=== PATIENT | female | born 1940 | race Caucasian/White ===

== ENCOUNTER 2020-10-23 16:07 | Emergency (ER) | payer MEDICARE, BC, OTHER ==
[~2020-10-23] VITALS: Ht 157.5 cm; Wt 78.2 kg
--- NOTE | 2020-10-23 17:53 | REPVR ---
PROCEDURE INFORMATION: Exam: CT Head Without Contrast Exam date and time: 10/23/2020 4:55 PM Age: 80 years old Clinical indication: Injury or trauma; Fall; Blunt trauma (contusions or hematomas); Additional info: Richelle TECHNIQUE: Imaging protocol: Computed tomography of the head without contrast. Radiation optimization: All CT scans at this facility use at least one of these dose optimization techniques: automated exposure control; mA and/or kV adjustment per patient size (includes targeted exams where dose is matched to clinical indication); or iterative reconstruction. COMPARISON: No relevant prior studies available. FINDINGS: Brain: Hyperdense subdural hematoma along the anterior falx cerebri measuring up to 4 mm in thickness, image 17 series 201. Focal areas of hyperdense left frontal subarachnoid hemorrhage, images 21 and 25 of series 201. The brain demonstrates diffuse volume loss. There is white matter hypodensity most consistent with chronic small vessel ischemic change. No visible evolving territorial infarct. Perivascular spaces or old lacunar infarcts in the lentiform nuclei. Cerebral ventricles: The ventricles are enlarged in keeping with volume loss. Paranasal sinuses: The paranasal sinuses are evaluated separately on a dedicated exam. Mastoid air cells: Visualized mastoid air cells are well aerated. Bones/joints: No acute calvarial fracture seen. Soft tissues: Left frontal scalp soft tissue swelling. IMPRESSION: Small, acute anterior parafalcine subdural as well as left frontal subarachnoid hemorrhages without intracranial mass effect. Electronically signed by: Tati Lyn On 10/23/2020 17:53:00 PM
--- NOTE | 2020-10-23 17:58 | REPVR ---
PROCEDURE INFORMATION: Exam: CT Cervical Spine Without Contrast Exam date and time: 10/23/2020 5:00 PM Age: 80 years old Clinical indication: Injury or trauma; Fall; Blunt trauma TECHNIQUE: Imaging protocol: Computed tomography images of the cervical spine without contrast. Radiation optimization: All CT scans at this facility use at least one of these dose optimization techniques: automated exposure control; mA and/or kV adjustment per patient size (includes targeted exams where dose is matched to clinical indication); or iterative reconstruction. COMPARISON: No relevant prior studies available. FINDINGS: Bones/joints: Mild lower cervical levoconvex scoliosis. Reversal of the cervical lordosis may be positional or due to muscle spasm. Slight grade 1 degenerative anterolisthesis of C3 on C4 and C7 on T1. No acute fracture seen. Discs/Spinal canal/Neural foramina: Moderate pannus like degenerative changes at C1-C2. Multilevel cervicothoracic disc height loss and spondylosis, in particular from C4-C5 through C6-C7. Advanced multilevel facet arthropathy. No severe central spinal canal stenoses. There are neural foraminal stenoses due to uncovertebral and facet arthropathy, in particular C4-C5 and C5-C6 levels. Oropharynx: Postinfectious postinflammatory calcifications in the palatine tonsils. Lungs: Lung apices are normal. Soft tissues: Unremarkable. IMPRESSION: No cervical spine fracture seen. Electronically signed by: Tati Lyn On 10/23/2020 17:58:27 PM
--- NOTE | 2020-10-23 18:02 | REPVR ---
PROCEDURE INFORMATION: Exam: CT Maxillofacial Without Contrast Exam date and time: 10/23/2020 5:00 PM Age: 80 years old Clinical indication: Injury or trauma; Fall; Blunt trauma (contusions or hematomas); Cheek bone and forehead and nose; Bilateral TECHNIQUE: Imaging protocol: Computed tomography images of the face without contrast. Radiation optimization: All CT scans at this facility use at least one of these dose optimization techniques: automated exposure control; mA and/or kV adjustment per patient size (includes targeted exams where dose is matched to clinical indication); or iterative reconstruction. COMPARISON: No relevant prior studies available. FINDINGS: Orbital cavity: Thinning of the lenses of the globes consistent with prior lens surgery. No acute findings of the orbital contents. Bones/joints: An acute, comminuted, mildly impacted nasal bone fracture. An acute fracture of the bony nasal septum demonstrating apex left angulation. An acute fracture of the upper bony nasal septum demonstrating slight rightward displacement. The facial bones elsewhere are intact. Degenerative changes of the temporomandibular joints. Paranasal sinuses: Trace left ethmoid mucosal thickening. Trace fluid in the left maxillary sinus. Soft tissues: Left frontal scalp and periorbital as well as prenasal soft tissue swelling. IMPRESSION: Acute nasal bone and nasal septal fractures. Electronically signed by: Tati Lyn On 10/23/2020 18:02:30 PM
[2020-10-23] MEDS ORDERED: DERMABOND TOPICAL SKIN ADHESIVE TOP ONE (18:30)
[2020-10-23 18:47] LABS: HEMATOCRIT 40.5 % (36.0-47.0); HEMOGLOBIN 13.3 g/dl (12.0-15.5); MEAN CORPUSCULAR HEMOGLOBIN 30.3 pg (27.0-33.0); MEAN CORPUSCULAR HGB CONC 32.8 g/dl (32.0-36.5); MEAN CORPUSCULAR VOLUME 92.3 fl (80.0-96.0); PLATELET COUNT, AUTOMATED 240 10^3/uL (150-450); RED BLOOD COUNT 4.39 10^6/uL (4.00-5.40)
[2020-10-23] MEDS ORDERED: ZOCO20TA PO (18:54)
[2020-10-23] MEDS ORDERED: OCUVCAP2 PO (18:54)
[2020-10-23] MEDS ORDERED: TOPR50TA PO (18:54)
[2020-10-23] MEDS ORDERED: IBUP200T45 PO (18:54)
[2020-10-23] MEDS ORDERED: NORV2TAB PO (18:54)
[2020-10-23 18:59] LABS: INR 0.94
[2020-10-23 19:16] LABS: ALBUMIN 3.9 GM/DL (3.2-5.2); ALT/SGPT 27 U/L (12-78); BILIRUBIN,TOTAL 0.4 MG/DL (0.2-1.0); BLOOD UREA NITROGEN 22 MG/DL (7-18); CALCIUM LEVEL 9.2 MG/DL (8.8-10.2); CARBON DIOXIDE LEVEL 27 MEQ/L (21-32); CHLORIDE LEVEL 102 MEQ/L (98-107); CREATININE FOR GFR 0.91 MG/DL (0.55-1.30); GLOMERULAR FILTRATION RATE > 60.0 (>32); GLUCOSE, FASTING 101 MG/DL (70-100); POTASSIUM SERUM 4.6 MEQ/L (3.5-5.1); SODIUM LEVEL 137 MEQ/L (136-145); TOTAL PROTEIN 6.8 GM/DL (6.4-8.2)
[2020-10-23 19:32] LABS: RSV AMPLIFICATION NEGATIVE (NEGATIVE)
[2020-10-23 21:00] VITALS: BP 143/67
== END 2020-10-23 21:18 | disposition short-term general hospital (02) ==
LOC: M ED 16:07
DX: S06.6X0A Traumatic subarachnoid hemorrhage without loss of consciousness, initial encounter (principal); S06.5X0A Traumatic subdural hemorrhage without loss of consciousness, initial encounter; S01.81XA Laceration without foreign body of other part of head, initial encounter; S02.2XXA Fracture of nasal bones, initial encounter for closed fracture; W01.0XXA Fall on same level from slipping, tripping and stumbling without subsequent striking against object, initial encounter; Y92.513 Shop (commercial) as the place of occurrence of the external cause; Y93.9 Activity, unspecified; Y99.8 Other external cause status; E78.5 Hyperlipidemia, unspecified; I10 Essential (primary) hypertension; Z88.6 Allergy status to analgesic agent; Z79.899 Other long term (current) drug therapy